=== PATIENT | male | born 1945 | race African-American/Black ===

== ENCOUNTER 2023-01-30 14:15 | Emergency (ER) | payer SELFPAY ==
[~2023-01-30] VITALS: Ht 182.9 cm; Wt 97.0 kg
[2023-01-30 14:18] VITALS: BP 110/72; PULSE 91; RESP 15; TEMP 98; O2SAT 94
== END 2023-01-30 15:16 | disposition left against medical advice (07) ==
LOC: ER 14:28
DX: F10.129 Alcohol abuse with intoxication, unspecified (principal); Y90.0 Blood alcohol level of less than 20 mg/100 ml
CPT/HCPCS: 99283